=== PATIENT | female | born 1990 | race Caucasian/White ===

== ENCOUNTER 2021-12-15 16:41 | Emergency (ER) | payer BC ==
[2021-12-15 16:57] VITALS: O2SAT 96
--- NOTE | 2021-12-15 17:28 | ERPHSYRPT ---
- History of Present Illness Time Seen by Provider: 12/15/21 16:50 Source: patient Exam Limitations: no limitations Patient Subjective Stated Complaint: Cough Triage Nursing Assessment: Patient ambulated back to ED and transferred self to bed. Patient A+O x3. Patient's skin flushed warm and dry. Patient states she has had fever as high as 102.5, cough, diarrhea, bodyaches, headaches and fatigue for 6 weeks. Patient was covid tested on Wednesday, which was negative and flu tested on Wednesday which is positive. Patient complains of right sided chest discomfort when coughing. Patient complains of produtive cough with thick yellow green mucus. Patient's lung clear a/p joana. Physician History: Patient is a 31-year-old female presents to our emergency department for evaluation of fever and cough. Patient states symptoms have been ongoing for approximately 6 days. Cough is productive of yellow-green sputum. Patient has also been experiencing body aches diarrhea headaches and fatigue. Patient had an outpatient COVID test which was negative. However her flu test was positive. Symptoms are mild to moderate in intensity. No specific worsening or improving factors. Patient is otherwise healthy. She voices no other complaints or concerns at this time. Timing/Duration: day(s) (6 days), week(s) Severity: moderate Modifying Factors: Improves With: nothing Associated Symptoms: nausea, cough, fever, No vomiting, No shortness of breath, No chest pain, No rash, No syncope, No seizure, No weakness Allergies/Adverse Reactions: No Known Drug Allergies Allergy (Unverified 12/15/21 16:46) Hx Influenza Vaccination/Date Given: No Hx Pneumococcal Vaccination/Date Given: No Immunizations Up to Date: Yes Travel Risk - International Travel Have you traveled outside of the country in past 3 weeks: No - Coronavirus Screening Are you exhibiting any of the following symptoms?: Yes Symptoms: Fever, Cough: New Onset, Shortness of Breath, Vomiting/Diarrhea, Headaches/Body Aches/Fatigue Close contact with a COVID-19 positive Pt in past 14-21 Days: No - Vaccine Status Have you recieved a Covid-19 vaccination: Yes Color [employer]: [employer] - Vaccination Dates Date of 2cond Vaccination (if applicable): October 2021 - Review of Systems Constitutional: No Symptoms, No Fever, No Chills Eyes: No Symptoms Ears, Nose, & Throat: No Symptoms Respiratory: No Symptoms, No Cough, No Dyspnea Cardiac: No Symptoms, No Chest Pain, No Edema, No Syncope Abdominal/Gastrointestinal: No Symptoms, No Abdominal Pain, No Nausea, No Vomiting, No Diarrhea Genitourinary Symptoms: No Symptoms, No Dysuria Musculoskeletal: No Symptoms, No Back Pain, No Neck Pain Skin: No Symptoms, No Rash Neurological: No Symptoms, No Dizziness, No Focal Weakness, No Sensory Changes Psychological: No Symptoms Endocrine: No Symptoms Hematologic/Lymphatic: No Symptoms Immunological/Allergic: No Symptoms All Other Systems: Reviewed and Negative - Past Medical History Neurological History: No Pertinent History Cardiac History: No Pertinent History Respiratory History: No Pertinent History Endocrine Medical History: No Pertinent History Musculoskeletal History: No Pertinent History Other Medical History: Varicose veins and hx of small superficial clots. Excessive daytime sleepiness - Past Surgical History Past Surgical History: No Neuro Surgical History: No Pertinent History Cardiac: No Pertinent History Respiratory: No Pertinent History Gastrointestinal: No Pertinent History Genitourinary: No Pertinent History Musculoskeletal: No Pertinent History Female Surgical History: No Pertinent History - Social History Smoking Status: Never smoker Exposure to second hand smoke: No Drug Use: none Patient Lives Alone: No - Female History Hx Last Menstrual Period: 2 weeks ago Hx Now: No - Nursing Vital Signs Nursing Vital Signs: Initial Vital Signs Temperature 100.7 F 12/15/21 16:47 Pulse Rate 105 H 12/15/21 16:47 Respiratory Rate 18 12/15/21 16:47 Blood Pressure 163/89 12/15/21 16:47 O2 Sat by Pulse Oximetry 96 12/15/21 16:47 Pain Scale Pain Intensity 0 - Physical Exam General Appearance: no apparent distress, alert Eye Exam: PERRL/EOMI, eyes nml inspection Ears, Nose, Throat Exam: normal ENT inspection, TMs normal, pharynx normal, moist mucous membranes Neck Exam: normal inspection, non-tender, supple, full range of motion Respiratory Exam: normal breath sounds, lungs clear, No respiratory distress Cardiovascular Exam: regular rate/rhythm, normal heart sounds, normal peripheral pulses Gastrointestinal/Abdomen Exam: soft, normal bowel sounds, No tenderness, No mass Back Exam: normal inspection, normal range of motion, No CVA tenderness, No vertebral tenderness Extremity Exam: normal inspection, normal range of motion, pelvis stable Neurologic Exam: alert, oriented x 3, cooperative, normal mood/affect, nml cerebellar function, nml station & gait, sensation nml, No motor deficits Skin Exam: normal color, warm, dry, No rash Lymphatic Exam: No adenopathy SpO2 Interpretation: normal SpO2: 96 O2 Delivery: Room Air - Course Nursing assessment & vital signs reviewed: Yes - Radiology Exams Chest X-ray Interpretation: Interpreted by me (Lungs are clear, cardiac silhouette within normal limits. Intact bony thorax.) Ordered Tests: Active Orders 24 hr Category Date Time Status CHEST 1 VIEW (PORTABLE) Stat Exams 12/15/21 16:59 Ordered - Progress Progress: improved Progress Note: Patient reassessed. She feels well. Patient has influenza A. Patient was rapid strep negative at an outside clinic. Patient has been coughing constantly. Chest x-ray negative for pneumonia. However in light of her fever persistent cough with productive of green to yellow sputum we will treat patient with a Z-Thomas. A prescription for azithromycin was forwarded to patient's pharmacy. Patient received a dose of acetaminophen in our ED for her fever. Patient agrees to follow-up with Dr. Barnhart within 48 hours for reevaluation. Patient voices no other complaints or concerns at this time. Patient states he is ready for discharge. Portions of this note were created with voice recognition technology. There may be grammatical, spelling, punctuation or sound alike errors 12/15/21 17:43 Counseled pt/family regarding: diagnosis, need for follow-up, rad results - Departure Departure Disposition: Home Clinical Impression: Influenza A, Fever, Cough Condition: Stable Critical Care Time: No Referrals: EDWIN BARNHART MD [Primary Care Provider] - Follow up/PCP as directed Additional Instructions: Discharge/Care Plan CARRIE PAK was seen on 12/15/21 in the Emergency Room. The patient was counseled regarding Diagnosis,Lab results, Imaging studies, need for follow up and when to return to the Emergency Room. Prescriptions given: Discharge Note I have spoken with the patient and/or caregivers. I have explained the patient's condition, diagnosis and treatment plan based on the information available to me at this time. I have answered the patient's and/or caregiver's questions and addressed any concerns. The patient and/or caregivers have as good understanding of the patient's diagnosis, condition and treatment plan as can be expected at this point. The vital signs have been stable. The patient's condition is stable and appropriate for discharge from the emergency department. The patient will pursue further outpatient evaluation with the primary care p hysician or other designated or consulting physician as outlined in the discharge instructions. The patient and/or caregivers are agreeable to this plan of care and follow-up instructions have been explained in detail. The patient and/or caregivers have received these instruction. The patient/and or caregivers are aware that any significant change in condition or worsening of symptoms should prompt an immediate return to this or the closest emergency department or call 911. Prescriptions: Azithromycin 250 mg [Zithromax 250 MG TABLET] 250 mg PO ZPACK #6 tablet
[2021-12-15] MEDS ORDERED: TYLENOL 325 MG PO ONE (17:38)
[2021-12-15] MEDS ORDERED: TYLENOL EXTRA STRENGTH 500 MG ONE (17:39)
[2021-12-15] MEDS ORDERED: TYLENOL EXTRA STRENGTH 500 MG PO STA (17:41)
[2021-12-15 17:49] VITALS: BP 140/85; PULSE 100
--- NOTE | 2021-12-16 08:37 | XRAY ---
Indication: Fever and cough. Comparison: None Portable chest demonstrates normal heart and lungs. Bony thorax intact with minimal levoscoliosis.
== END 2021-12-15 17:54 | disposition home or self-care (01) ==
LOC: ED 16:41
DX: J10.1 Influenza due to other identified influenza virus with other respiratory manifestations (principal); R50.9 Fever, unspecified; R05.9 Cough, unspecified; M79.10 Myalgia, unspecified site; R19.7 Diarrhea, unspecified; R51.9 Headache, unspecified; R53.83 Other fatigue
CPT/HCPCS: 71045; 99283; A9270-GY